=== PATIENT | female | born 1975 | race Two or more races ===

== ENCOUNTER 2020-05-28 19:40 | Emergency (ER) | payer OTHER ==
[~2020-05-28] VITALS: Ht 157.5 cm; Wt 56.7 kg
[2020-05-28] MEDS ORDERED: CLONAZEPAM0.5 MG (19:47)
== END 2020-05-28 23:51 | disposition home or self-care (01) ==
LOC: ER 19:40
DX: R53.1 Weakness (principal); E86.0 Dehydration; F06.4 Anxiety disorder due to known physiological condition; Z11.52 Encounter for screening for COVID-19